=== PATIENT | female | born 1950 | race Caucasian/White ===

== ENCOUNTER 2019-02-09 13:30 | Outpatient (CLI) | payer MEDICARE | END 2019-02-09 14:30 | disposition home or self-care (01) | LOC: D.MAMMO 13:30 | PROVIDERS: ATTEND Family Medicine | DX: Z12.31 Encounter for screening mammogram for malignant neoplasm of breast (principal) ==

== ENCOUNTER → 2020-10-04 09:46 | Outpatient (CLI) | payer MEDICARE ==
[2020-10-04 10:22] LABS: BASOPHILS 0.3 % (0-2); EOSINOPHILS 2.7 % (0-7); HEMATOCRIT 42.6 % (36.0-48.0); HEMOGLOBIN 13.5 g/dL (12-16); IMMATURE GRANULOCYTES 0.4 % (0-5); LYMPHOCYTE ABS# 2.45 10x3/uL (1.18-3.74); LYMPHOCYTES 31.3 % (15-50); MCH 27.1 pg (26.0-34.0); MCHC 31.7 g/dL (31.0-37.0); MCV 85.4 fL (80.0-100.0); MONOCYTES 10.2 % (2-11); NEUTROPHIL ABS# 4.33 10x3/uL (1.56-6.13); NEUTROPHILS 55.1 % (40-80); PLATELET COUNT 297 10x3/uL (130-400); RBC 4.99 10x6/uL (4.00-5.40); RDW 14.6 % (11.5-14.5); WBC 7.8 10x3/uL (4.8-10.8)
== END | disposition home or self-care (01) ==
LOC: D.LAB 09:46
PROVIDERS: ATTEND Internal Medicine Gastroenterology
DX: D64.9 Anemia, unspecified (principal)